=== PATIENT | male | born 1970 ===

== ENCOUNTER 2017-01-23 12:20 | Emergency (ER) | payer OTHER ==
[2017-01-23 12:40] VITALS: BP 147/98; PULSE 85; TEMP 98; O2SAT 97
[2017-01-23 13:03] VITALS: RESP 17
--- NOTE | 2017-01-23 14:24 | C.PDOC ---
History Of Present Illness Aguila Sanders is a 46 y/o male presenting to the ER complaining of chin swelling for 2 days. States that a wild bird bit him on the chin. The swelling has slowly been increasing in size. No foul taste in the mouth. No fever. Time Seen by Provider: 01/23/17 12:44 Chief Complaint (Nursing): Abnormal Skin Integrity History Per: Patient History/Exam Limitations: no limitations Onset/Duration Of Symptoms: Days (x 2) Current Symptoms Are (Timing): Still Present Quality Of Symptoms: Swollen Past Medical History Reviewed: Historical Data, Nursing Documentation, Vital Signs Vital Signs: Last Vital Signs Temp 98 F 01/23/17 12:33 Pulse 85 01/23/17 12:33 Resp 17 01/23/17 13:02 BP 147/98 H 01/23/17 12:33 Pulse Ox 97 01/23/17 14:26 - Medical History PMH: Diabetes (type 2; on insulin ), HTN Other Surgeries: abdominal surgery s/p trauma Family History: States: Unknown Family Hx - Social History Hx Tobacco Use: Yes (heavy smoker) Hx Alcohol Use: Yes Hx Substance Use: No - Immunization History Hx Tetanus Toxoid Vaccination: No Hx Influenza Vaccination: No Hx Pneumococcal Vaccination: No Review Of Systems Except As Marked, All Systems Reviewed And Found Negative. Constitutional: Positive for: Other (swelling to chin). Negative for: Fever, Chills ENT: Negative for: Other (foul taste) Physical Exam - Physical Exam Appears: Non-toxic, No Acute Distress Skin: Warm, Dry Head: Atraumatic, Normacephalic, Other (Approximately 1 cm circumferential abscess to chin, indurated) Eye(s): bilateral: Normal Inspection, PERRL, EOMI Oral Mucosa: Moist Neck: Normal ROM, Supple Cardiovascular: Rhythm Regular, No Murmur Respiratory: Normal Breath Sounds, No Accessory Muscle Use Extremity: Normal ROM, No Deformity Neurological/Psych: Oriented x3, Normal Speech ED Course And Treatment O2 Sat by Pulse Oximetry: 97 (RA) Pulse Ox Interpretation: Normal Medical Decision Making Medical Decision Making: Impression: 46 y/o with chin abscess Will d/c with rxs for ibuprofen, Bactrim, and cephalexin. Pt is to follow up in 2 days with PMD for reevaluation. Disposition Counseled Patient/Family Regarding: Diagnosis, Need For Followup, Rx Given - Disposition Referrals: Kathryn Da Silvaq, [Non-Staff] - Disposition: HOME/ ROUTINE Disposition Time: 12:45 Condition: GOOD Additional Instructions: Thank you for letting us take care of you today. If you were prescribed any medication, please fill it and take as directed. It may take several days for your symptoms to resolve. Return to the Emergency Department if your symptoms worsen, do not improve, or if you have any other problems. Please contact your doctor or call one of the physicians/clinics you have been referred to that are listed on the Patient Visit Information form that is included in your discharge packet. Bring any paperwork you were given at discharge with you along with any medications you are taking to your follow up visit. Our treatment cannot replace ongoing medical care by a primary care provider (PCP) outside of the emergency department. Thank you for allowing the [facility] team to be part of your care today. Follow up with your doctor in 2 days for re-evaluation of your abscess. Marni por dejarnos atenderlo hoy. Si le prescribieron algn medicamento, ll juana y tome segn las indicaciones. Aniya sntomas pueden tardar varios baeza en resolverse. Regrese al Departamento de Emergencia si aniya sntomas empeoran, no mejoran o si tiene algn otro problema. Comunquese con nguyen mdico o llame a mo de los mdicos / clnicas a los que [place] sido referido que figura en el formulario de Informacin de visita del paciente que se incluye en nguyen paquete de keri. Traiga todos los documentos que recibi al momento del keri junto con los medicamentos que est tomando en nguyen visita de seguimiento. Nuestro tratamiento no puede reemplazar la atencin mdica en curso por parte de un proveedor de atencin primaria (PCP) fuera del departamento de emergencias. Marni por permitir que el equipo de [facility] sea parte de nguyen cuidado hoy. Harjeet un seguimiento con nguyen mdico en 2 baeza para faisal nueva evaluacin de nguyen absceso. Prescriptions: Cephalexin [cephalexin] 500 mg PO Q8 #21 cap Ibuprofen [Motrin] 600 mg PO Q6 PRN #20 tab PRN Reason: Pain, Moderate (4-7) Sulfamethoxazole/Trimethoprim [Bactrim DS 800 mg-160 mg] 1 tab PO BID #14 tab Instructions: Abscess (ED) Forms: Gen Discharge Inst Urdu Print Language: PERSIAN - Clinical Impression Clinical Impression: Abscess - Scribe Statement The provider has reviewed the documentation as recorded by the Scribe (Anupama Alexandra) Provider Attestation: All medical record entries made by the Scribe were at my direction and personally dictated by me. I have reviewed the chart and agree that the record accurately reflects my personal performance of the history, physical exam, medical decision making, and the department course for this patient. I have also personally directed, reviewed, and agree with the discharge instructions and disposition.
== END 2017-01-23 13:02 | disposition home or self-care (01) ==
LOC: C.ER 12:20
DX: L02.01 Cutaneous abscess of face (principal)

== ENCOUNTER 2017-03-15 10:44 | Emergency (ER) | payer OTHER ==
[2017-03-15 11:28] VITALS: BP 164/104; PULSE 76; RESP 20; TEMP 97.4; O2SAT 96
[2017-03-15 12:35] LABS: URINE BILIRUBIN NEGATIVE (NEGATIVE); URINE BLOOD 1+ (NEGATIVE); URINE CLARITY Clear (Clear); URINE COLOR Colorless (YELLOW); URINE GLUCOSE (UA) NORMAL (Normal); URINE LEUKOCYTE ESTERASE NEG Leu/uL (Negative); URINE NITRATE NEGATIVE (NEGATIVE); URINE PROTEIN 1+ mg/dL (NEGATIVE); URINE UROBILINOGEN NORMAL mg/dL (0.2-1.0)
[2017-03-15 13:49] LABS: ALB/GLOB RATIO 1.1 (1.0-2.1); ALBUMIN 4.4 g/dL (3.5-5.0); ALT/SGPT 40 U/L (21-72); AST/SGOT 44 U/L (17-59); BLOOD UREA NITROGEN 18 mg/dL (9-20); CALCIUM 9.7 mg/dl (8.6-10.4); GFR AFRICAN-AMERICAN > 60; GFR NON-AFRICAN AMERICAN 59
[2017-03-15 13:50] LABS: BASO # 0.1 K/uL (0.0-0.2); BASO % 1.3 % (0.0-2.0); EOS # 0.3 K/uL (0.0-0.7); EOS % 3.7 % (0.0-4.0); HEMOGLOBIN 14.7 g/dL (12.0-18.0); LYMPH # 2.4 K/uL (1.0-4.3); LYMPH % 25.4 % (20.0-40.0); MEAN CELL VOLUME 79.6 fL (80.0-94.0); MEAN CORPUSCULAR HEMOGLOBIN 27.5 pg (27.0-31.0); MEAN CORPUSCULAR HGB CONC 34.5 g/dL (33.0-37.0); MEAN PLATELET VOLUME 9.3 fL (7.2-11.7); MONO # 0.5 K/uL (0.0-0.8); MONO % 5.8 % (0.0-10.0); NEUT % 63.8 % (50.0-75.0); NRBC % 0.1 % (0.0-2.0); RBC 5.34 Mil/uL (4.40-5.90); WHITE BLOOD COUNT 9.3 K/uL (4.8-10.8)
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
--- NOTE | 2017-03-16 14:08 | CT ---
PROCEDURE: CT Abdomen and Pelvis without Oral or IV contrast. HISTORY: Abd pain right flank pain and hematuria COMPARISON: CT abdomen and pelvis without IV contrast performed 01/15/17 TECHNIQUE: Contiguous axial images of the abdomen and pelvis. No oral or IV contrast administered. Coronal and Sagittal reformats generated and reviewed. Radiation dose: Total exam DLP = 631.68 mGy-cm. This CT exam was performed using one or more of the following dose reduction techniques: Automated exposure control, adjustment of the mA and/or kV according to patient size, and/or use of iterative reconstruction technique. FINDINGS: There is limited evaluation of the solid organs without the administration of IV contrast. Lower thorax Mild lingular atelectasis. No visible pleural effusion or pneumothorax. Liver Unremarkable unenhanced appearance. Gallbladder and bile ducts Unremarkable unenhanced appearance. Pancreas Unremarkable unenhanced appearance. Spleen Unremarkable unenhanced appearance. Adrenals Unremarkable unenhanced appearance. Kidneys and ureters Bilateral malrotated kidneys. No hydronephrosis or obstructing renal calculus. 3 mm left renal hyperdensity, too small to characterize. Nonspecific bilateral perinephric stranding. Bladder The urinary bladder appears unremarkable. Reproductive The prostate gland measures approximately 3.4 x 3.4 cm and contains calcifications. Appendix The appendix appears within normal limits of caliber. No secondary signs of acute appendicitis. Bowel The stomach is nondistended. Lack of oral contrast limits evaluation for bowel pathology. The bowel loops appear within normal limits of caliber without evidence of intestinal obstruction. Peritoneum No significant free fluid. No definite free air. Lymph nodes No bulky lymphadenopathy identified. Vasculature No aortic aneurysm. Bones No acute osseous abnormality is detected. Other Findings Small fat containing bilateral inguinal hernias. Diastasis recti. IMPRESSION:: Bilateral malrotated kidneys. No hydronephrosis or obstructing renal calculus. 3 mm left renal hyperdensity, too small to characterize. Bilateral perinephric stranding, nonspecific ; correlate clinically for possibility of pyelonephritis. Mild lingular atelectasis. Additional findings as above. Due to technical issues, delay in sign off of report. Case discussed with Lianet Pulido 03/15/17 at 417pm.
== END 2017-03-15 14:28 | disposition left against medical advice (07) ==
LOC: C.ER 10:44
DX: R10.9 Unspecified abdominal pain (principal); I10 Essential (primary) hypertension